=== PATIENT | male | born 1985 | race Caucasian/White ===

== ENCOUNTER 2017-07-31 16:07 | Emergency (ER) | payer BC ==
--- NOTE | 2017-07-31 16:19 | EDM.PDOC ---
ED HPI GENERAL MEDICAL PROBLEM - General Chief Complaint: Skin Complaint Stated Complaint: POSSIBLE STAPH INFECTION/NECK CHEST AREA Time Seen by Provider: 07/31/17 16:19 Source of Information: Reports: Patient History Limitations: Reports: No Limitations - History of Present Illness INITIAL COMMENTS - FREE TEXT/NARRATIVE: HISTORY AND PHYSICAL: History of present illness: Patient presents to the emergency room today with complaints of skin infection. Reports that he was shaving his neck approximately 3 days ago and knicked below the right jawline which became infected. States this morning he noticed a couple hairs below the right clavicle so look irritated possibly infected. He shouldn't is concerned he has a staph infection. He denies any previous skin infection such as staph/MRSA. Denies any fevers or chills. Denies any chest pain , shortness of breath, abdominal pain. Review of systems: As per history of present illness and below otherwise all systems reviewed and negative. Past medical history: As per history of present illness and as reviewed below otherwise noncontributory. Surgical history: As per history of present illness and as reviewed below otherwise noncontributory. Social history: No reported history of drug or alcohol abuse. Family history: As per history of present illness and as reviewed below otherwise noncontributory. Physical exam: Gen.: Nontoxic appearing 32-year-old male. Able to speak in full sentences without shortness of breath. Answers questions appropriately. Alert and oriented HEENT: Atraumatic, normocephalic, pupils reactive, negative for conjunctival pallor or scleral icterus, mucous membranes moist, throat clear, neck supple, nontender, trachea midline. Lungs: Clear to auscultation, breath sounds equal bilaterally, chest nontender. Heart: S1S2, regular rate and rhythm Abdomen: Soft, nondistended, nontender. Negative for costovertebral tenderness. Pelvis: Stable nontender. Genitourinary: Deferred. Rectal: Deferred. Skin: Infected hair follicle, circular pustule, noted to right upper neck along the jawline. Warm to touch, unable to express any drainage from the site, does appear to be scabbed over. 3 similar infected hair follicles noted to have stopped below the right clavicle. These are also scabbed over and unable to express any drainage from the sites. Extremities: Atraumatic, negative for cords or calf pain. Neurovascular unremarkable. Neuro: Awake, alert, oriented. Cranial nerves II through XII unremarkable. Cerebellum unremarkable. Motor and sensory unremarkable throughout. Exam nonfocal. Diagnostics: [] Therapeutics: [] Impression: Folliculitis, cellulitis Plan: 1. Please take antibiotics as prescribed. Please keep skin clean and dry. Wear loose clothing over the chest area. Avoid shaving until your skin condition has resolved. 2. Follow-up with your primary care provider in the next 1-2 days. Return to the ED as needed as discussed. Definitive disposition and diagnosis as appropriate pending reevaluation and review of above. Location: Reports: Chest - Related Data Allergies Allergy/AdvReac Type Severity Reaction Status Date / Time No Known Allergies Allergy Verified 07/31/17 16:22 Home Meds: Home Meds . [No Known Home Meds] 07/31/17 [History] ED ROS GENERAL - Review of Systems Review Of Systems: ROS reveals no pertinent complaints other than HPI. ED EXAM, SKIN/RASH Exam: See Below (See dictation) Course - Vital Signs Last Recorded V/S: Last Vital Signs Temp 36.9 C 07/31/17 16:18 Pulse 81 07/31/17 16:18 Resp 18 07/31/17 16:18 BP 147/92 H 07/31/17 16:18 Pulse Ox 96 07/31/17 16:18 - Orders/Labs/Meds Orders: Active Orders 24 hr Category Date Time Status Knee 3V Lt [CR] Stat Exams 07/31/17 16:40 Ordered Departure - Departure Time of Disposition: 16:34 Disposition: Home, Self-Care 01 Clinical Impression: Folliculitis Cellulitis Qualifiers: Site of cellulitis: neck Qualified Code(s): L03.221 - Cellulitis of neck - Discharge Information Referrals: PCP,None [Primary Care Provider] - Forms: ED Department Discharge Additional Instructions: The following information is given to patients seen in the emergency department who are being discharged to home. This information is to outline your options for follow-up care. We provide all patients seen in our emergency department with a follow-up referral. The need for follow-up, as well as the timing and circumstances, are variable depending upon the specifics of your emergency department visit. If you don't have a primary care physician on staff, we will provide you with a referral. We always advise you to contact your personal physician following an emergency department visit to inform them of the circumstance of the visit and for follow-up with them and/or the need for any referrals to a consulting specialist. The emergency department will also refer you to a specialist when appropriate. This referral assures that you have the opportunity for followup care with a specialist. All of these measure are taken in an effort to provide you with optimal care, which includes your followup. Under all circumstances we always encourage you to contact your private physician who remains a resource for coordinating your care. When calling for followup care, please make the office aware that this follow-up is from your recent emergency room visit. If for any reason you are refused follow-up, please contact the [facility] emergency department at and ask to speak to the emergency department charge nurse. [facility] Primary care- Internal Medicine and Family [address] [address] 1. Please take antibiotics as prescribed. Please keep skin clean and dry. Wear loose clothing over the chest area. Avoid shaving until your skin condition has resolved. 2. Follow-up with your primary care provider in the next 1-2 days. Return to the ED as needed as discussed. - My Orders Last 24 Hours: My Active Orders 07/31/17 16:40 Knee 3V Lt [CR] Stat - Assessment/Plan Last 24 Hours: My Active Orders 07/31/17 16:40 Knee 3V Lt [CR] Stat
[2017-07-31 18:34] VITALS: BP 137/77
== END 2017-07-31 16:54 | disposition home or self-care (01) ==
LOC: MW.ED 16:07
DX: L73.9 Follicular disorder, unspecified (principal); L03.221 Cellulitis of neck
CPT/HCPCS: 99282; 99283